=== PATIENT | male | born 1950 | race Caucasian/White ===

== ENCOUNTER 2024-03-07 09:44 | Day surgery (SDC) | payer MEDICARE, OTHER, SELFPAY ==
[2024-03-07] MEDS: CEFTRIAXONE 1,000 MG, LIDOCAINE HCL/PF 2.1 ML IM (10:31)
[2024-03-07] MEDS: LIDOCAINE 2% JELLY 10 ML UR (10:47)
[2024-03-07] MEDS: LIDOCAINE HCL 1% 100 MG/10 ML MDV INJ (10:48)
[2024-03-07] MEDS: BACITRACIN OINTMENT 28.4 GM TUBE 1 APPLIC TOPICAL (11:01)
--- NOTE | 2024-03-07 11:21 | P.URON_ITS ---
Urology Surgery Operative Note Operative Note Procedure Date: 03/14/24 Time Out Performed: yes Pre-op Diagnosis: 1. Elevated PSA Post-op Diagnosis: same as pre-op Procedures performed: 1. Transperineal prostate needle biopsy 2. Ultrasound for needle prostate biopsy, transperineal approach 3. Transrectal ultrasound of prostate and seminal vesicles 4. Nerve block of prostate Anesthesia: local Primary Surgeon: Domenica Bryant Complications: none Estimated blood loss (mL): 1 Findings: No discrete hypoechoic lesions. SVs normal. LIA left apex firmer, mildly enlarged prostate Specimens: 1. Right posterior medial (2 cores) 2. Right posterior lateral (2 cores) 3. Right base (2 cores) 4. Right anterior medial (1 core) 5. Right anterior lateral (1 core) 6. Left posterior medial (2 core) 7. Left posterior lateral (2 core) 8. Left base (2 cores) 9. Left anterior medial (1 cores) 10. Left anterior lateral (1 cores) Indications for Procedures: 73 year old male with history of elevated PSA 6.9, 16% free on 08/01/23. MP-MRI prostate 02/29/24 showed no concerning lesions. Prostate volume 42 ml. After discussion of risks/benefits of management options and biopsy approaches, he elected to proceed with transperineal prostate biopsy under local. Risks were discussed to include but not limited to bleeding, pain, infection, damage to surrounding structures, hematuria, difficulty urinating, ec chymosis, swelling, injury from positioning, and need for additional procedures. Detailed description of Procedure: After informed consent was obtained, the patient was brought to the operating suite and transferred onto the operating table in supine position. Sequential compression devices were placed on bilateral lower extremities. He received the appropriate dose of preoperative IM antibiotics. He was positioned in the dorsal lithotomy position with scrotum secured out of the perineum with tape, and the appropriate pressure points padded, prepped and draped in the usual fashion for this procedure. An operative timeout was performed confirming the patient's identity, procedure and safety checks. A digital rectal exam was performed notin g findings as above. Lidocaine gel was inserted per rectum. A well lubricated biplane transrectal ultrasound probe was inserted into the rectum and the prostate was aligned. The gland was visualized fully in axial and sagittal views to allow for identification of anatomy and location of the urethra as noted in findings. The skin followed by periprostatic local anesthetic lidocaine 1% was delivered. The Precision Point device was placed on the ultrasound probe for transperineal approach. 1-2 core needle biopsies were obtained in a systematic fashion from 10 regions of the prostate including the medial and lateral aspects of the anterior and posterior prostate, as well as base of the right and left lobes. Total 16 biopsies were obtained. The ultrasound probe was removed and the perineum was cleaned and dressed with antibiotic ointment, fluffs and scrotal support. Adequate hemostasis was achieved. The patient tolerated the procedure well and was sent to PACU in stable condition. Plan: Void prior to discharge home. Follow up in 1-2 weeks for pathology review. Other Provider present: No Post Operative care instructions: see discharge instructions
== END 2024-03-07 11:38 | disposition home or self-care (01) ==
PROVIDERS: PCP Internal Medicine; Visit Provider Urology
PROC: (CPT 55700; principal; 2024-03-07 10:10)
DX: R97.20 Elevated prostate specific antigen [PSA] (principal); I48.91 Unspecified atrial fibrillation; E55.9 Vitamin D deficiency, unspecified; N40.0 Benign prostatic hyperplasia without lower urinary tract symptoms
CPT/HCPCS: 55700; 88305; J0696